=== PATIENT | female | born 1980 | race Caucasian/White ===

== ENCOUNTER 2022-11-18 17:53 | Emergency (ER) | payer OTHER ==
[~2022-11-18] VITALS: Ht 157.5 cm; Wt 67.1 kg
[~2022-11-18 17:53] MED LIST: FIORICET 50-321 EACH PO
== END 2022-11-18 22:39 | disposition home or self-care (01) ==
LOC: ER 17:53
DX: I10 Essential (primary) hypertension (principal)

== ENCOUNTER 2022-11-27 01:50 | Emergency (ER) | payer OTHER ==
[~2022-11-27] VITALS: Ht 157.5 cm; Wt 65.8 kg
[2022-11-27] MEDS ORDERED: SYNTHROID125 MCG PO (02:08)
[2022-11-27] MEDS ORDERED: ZESTRIL10 M1 PO (02:09)
[2022-11-27] MEDS ORDERED: SIMVASTATIN5 MG (02:09)
== END 2022-11-27 04:10 | disposition home or self-care (01) ==
LOC: ER 01:50
DX: R00.2 Palpitations (principal)

== ENCOUNTER 2023-01-09 18:55 | Emergency (ER) | payer OTHER ==
[~2023-01-09] VITALS: Ht 157.5 cm; Wt 64.0 kg
[~2023-01-09 18:55] MED LIST changes: +SIMVASTATIN5 MG; +SYNTHROID125 MCG PO; +ZESTRIL10 M1 PO
== END 2023-01-09 22:03 | disposition home or self-care (01) ==
LOC: ER 18:55
DX: Z77.098 Contact with and (suspected) exposure to other hazardous, chiefly nonmedicinal, chemicals (principal)

== ENCOUNTER 2023-04-12 13:50 | Emergency (ER) | payer OTHER ==
[~2023-04-12] VITALS: Ht 157.5 cm; Wt 64.0 kg
[2023-04-12 16:04] LABS: HEMATOCRIT 38.7 % (36.0-45.00); HEMOGLOBIN 12.7 g/dL (12.0-15.00); MEAN CELL VOLUME 90.1 fL (80.00-100.00); MEAN CORPUSCULAR HEMOGLOBIN 29.6 pg (27.00-32.0); MEAN CORPUSCULAR HGB CONC 32.8 g/dl (32.0-36.0); PLATELET COUNT 220 K/uL (150-450); RED BLOOD COUNT 4.29 M/uL (4.00-6.00)
[2023-04-12 16:22] LABS: URINE APPEARANCE Clear; URINE BILIRRUBIN Negative (NEGATIVE); URINE BLOOD Trace; URINE COLOR Yellow; URINE GLUCOSE Negative (NEGATIVE); URINE LEUKOCYTE Negative; URINE NITRATE Negative; URINE PROTEIN Negative (NEGATIVE); URINE UROBILINOGEN 0.2 E.U./dl
[2023-04-12 16:25] LABS: INR 0.98; PROTHROMBIN TIME 10.3 SECONDS (9.0-11.5)
[2023-04-12 16:26] LABS: URINE BACTERIA 574.5 uL (0.0-1933); URINE RBC 3.8 uL (0.0-20.8); URINE WBC 2.3 uL (0.0-23.2)
[2023-04-12 16:26] LABS: CALCIUM 8.8 mg/dL (8.5-10.1); CREATININE SERUM 0.82 mg/dL (0.55-1.02); GFR 76.82; POTASSIUM 3.63 mEq/L (3.5-5.1)
[2023-04-12] MEDS ORDERED: LEVSIN/SL0.125 MG SL (19:04)
[2023-04-12] MEDS ORDERED: INTESTINEX680 M1 PO (19:04)
[2023-04-12] MEDS ORDERED: PEPCID AC20 MG PO (19:04)
== END 2023-04-12 19:30 | disposition home or self-care (01) ==
LOC: ER 13:50
PROVIDERS: Nurse Practitioner Family
DX: S93.492A Sprain of other ligament of left ankle, initial encounter (principal); X58.XXXA Exposure to other specified factors, initial encounter; Y93.9 Activity, unspecified; Y92.9 Unspecified place or not applicable; Y99.9 Unspecified external cause status; Z91.048 Other nonmedicinal substance allergy status

== ENCOUNTER 2023-07-07 09:54 | Emergency (ER) | payer OTHER ==
[~2023-07-07] VITALS: Ht 157.5 cm; Wt 62.1 kg
[~2023-07-07 09:54] MED LIST changes: +INTESTINEX680 M1 PO; +LEVSIN/SL0.125 MG SL; +PEPCID AC20 MG PO
[2023-07-07] MEDS ORDERED: SIMVASTATIN40 MG PO (11:04)
[2023-07-07] MEDS ORDERED: LISINOPRIL5 MG PO (11:04)
[2023-07-07 13:45] LABS: CALCIUM 8.3 mg/dL (8.5-10.1); CREATININE SERUM 0.77 mg/dL (0.55-1.02); GFR 82.61; POTASSIUM 3.76 mEq/L (3.5-5.1)
== END 2023-07-07 15:57 | disposition home or self-care (01) ==
LOC: ER 09:55
DX: R00.2 Palpitations (principal)

== ENCOUNTER 2024-06-22 19:55 | Emergency (ER) | payer OTHER ==
[~2024-06-22] VITALS: Ht 162.6 cm; Wt 63.5 kg
[~2024-06-22 19:55] MED LIST changes: +LISINOPRIL5 MG PO; +SIMVASTATIN40 MG PO
== END 2024-06-23 05:25 | disposition home or self-care (01) ==
LOC: ER 19:57
DX: G44.209 Tension-type headache, unspecified, not intractable (principal)